=== PATIENT | female | born 1945 | race Caucasian/White ===

== ENCOUNTER → 2017-02-28 | Outpatient (CLI) | payer OTHER, MEDICARE | LOC: BMCIMAGING 13:53 | PROVIDERS: ATTEND Internal Medicine | DX: Z12.31 Encounter for screening mammogram for malignant neoplasm of breast (principal); Z13.820 Encounter for screening for osteoporosis; M85.80 Other specified disorders of bone density and structure, unspecified site | CPT/HCPCS: G0202 ==

== ENCOUNTER → 2017-03-22 | Outpatient (CLI) | payer OTHER, MEDICARE | LOC: BMCIMAGING 10:21 | PROVIDERS: ATTEND Internal Medicine | DX: N63 Unspecified lump in breast (principal) | CPT/HCPCS: 76641; G0206 ==

== ENCOUNTER → 2017-05-15 | Outpatient (CLI) | payer OTHER, MEDICARE | LOC: BMCIMAGING 07:25 | PROVIDERS: ATTEND Internal Medicine | DX: N20.0 Calculus of kidney (principal); N21.0 Calculus in bladder; N28.1 Cyst of kidney, acquired ==

== ENCOUNTER → 2017-05-22 | Outpatient (CLI) | payer OTHER | LOC: FIMAGING 14:15 | PROVIDERS: ATTEND Internal Medicine | DX: N63 Unspecified lump in breast (principal) | CPT/HCPCS: G0206 ==

== ENCOUNTER 2018-02-20 09:34 | Emergency (ER) | payer OTHER, MEDICARE ==
[2018-02-20] MEDS ORDERED: OXYMETAZOLINE 30 ML NASAL SPRAY ONE (09:48)
[2018-02-20] MEDS ORDERED: TRANEXAMIC ACID 1,000 MG/10 ML VIAL ONE (09:48)
[2018-02-20] MEDS ORDERED: SILVER NITRATE APPLICATOR 1 APPL TP ONE ×2 (10:16→10:28)
--- NOTE | 2018-02-20 10:43 | EDPHY ---
H & P Time Seen by Provider: 02/20/18 09:45 HPI/ROS: CHIEF COMPLAINT: Epistaxis HISTORY OF PRESENT ILLNESS: 72-year-old female who is on Coumadin presents to the emergency department by private vehicle with epistaxis. The patient states that she was a woken at 6 o'clock this morning with episode of epistaxis. She had difficulty controlling this. She did check her INR this morning and was 2.6. She denies feeling lightheaded or dizzy. Denies chest pain or difficulty breathing. Denies trauma. Denies abdominal pain or vomiting. REVIEW OF SYSTEMS: Constitutional: No fever, no chills. Eyes: No double or blurry vision. ENT: Epistaxis. No sore throat. Respiratory: No cough, no shortness of breath. Cardiac: No chest pain. Gastrointestinal: No abdominal pain, vomiting or diarrhea. Genitourinary: No dysuria. Musculoskeletal: No neck or back pain. Skin: No rashes. Neurological: No headache. Past Medical/Surgical History: Mitral valve replacement, hysterectomy, shoulder surgery, tubal ligation, tonsillectomy, cardioversion, atrial flutter, asthma, CVA Social History: Smoking Status: Never smoked Physical Exam: General Appearance: Alert, no distress. Initial blood pressure 124/94 Eyes: Pupils equal and round. Extraocular motions are all intact. ENT: Active bleeding noted from the right nostril as well as blood noted in the posterior pharynx. No bleeding from the left nostril. Respiratory: No wheezing, rhonchi, or rales, lungs are clear to auscultation. Cardiovascular: Regular rate and rhythm. Gastrointestinal: Abdomen is soft and nontender, no masses, no rebound or guarding, bowel sounds normal. Neurological: Alert and oriented x 3, cranial nerves II through XII grossly intact Skin: Warm and dry, no rashes. Musculoskeletal: Nontender to palpate along the cervical, thoracic or lumbar spine. Neck is supple. Extremities: Full range of motion and no peripheral edema. Psychiatric: Patient is oriented X 3, there is no agitation. Constitutional: Initial Vital Signs Temperature (C) 36.8 C 02/20/18 09:41 Heart Rate 86 02/20/18 09:41 Respiratory Rate 19 02/20/18 09:41 Blood Pressure 124/94 H 02/20/18 09:41 O2 Sat (%) 93 02/20/18 09:41 O2 Delivery Mode Room Air Allergies/Adverse Reactions: ketorolac tromethamine [From Toradol] Allergy (Verified 02/20/18 09:41) Vomiting Opioids - Morphine Analogues Allergy (Verified 02/20/18 09:41) Home Medications: Medication Instructions Recorded Metoprolol Tartrate [Lopressor 25 12.5 mg PO BID #30 tab 04/10/16 mg (*)] Sennosides [Senokot] 1 tab PO BID #0 tab 04/10/16 Warfarin Sodium [Coumadin 3MG (*)] 3 mg PO MoWeFr@1600 #0 tab 04/10/16 Warfarin Sodium [Coumadin 4MG (*)] 4 mg PO SuTuThSa@1600 #0 tab 04/10/16 Medical Decision Making Procedures: Procedure: Epistaxis control. After verbal consent was obtained, the patient was anesthetized with 1% lidocaine with epinephrine and TXA. The anterior epistaxis was identified. The patient was treated with silver nitrate. Following the procedure the patient was re-examined and the bleeding was well controlled. The patient tolerated the procedure well. The procedure was performed by myself. ED Course/Re-evaluation: 72-year-old female presents to the emergency department with acute epistaxis. This was controlled with silver nitrate. No packing needed. While the patient was in the emergency department she became extremely nauseous and vomited. She had blood noted in the vomit likely from all the blood dripping down from the posterior pharynx. The patient felt much better. She was no longer feeling nauseous. Vital signs remained stable. Repeat blood pressure 154/97, heart rate 68, 92% on room air. The patient was observed for over 1 hr after she was cauterized. She had no recurring bleeding. I do not think packing is indicated. She feels comfortable being discharged home. She drinks some juice and is feeling fine. She was given ENT referral. The patient had an INR at home at 2.6. She declined blood work including INR in the emergency department. Differential Diagnosis: Including but not limited to epistaxis, hypertensive crisis, anemia, supratherapeutic on Coumadin Departure - Departure Disposition: Home, Routine, Self-Care Clinical Impression: Acute anterior epistaxis Condition: Good Instructions: Nosebleed (ED) Additional Instructions: Try not to pick, rub or blow your nose for at least 3 days. Return to the emergency department if you developed recurring problems with nosebleeds. Continue to monitor your INR. Follow up with ENT as discussed. It would be beneficial if you added a nasal lubricant, Vaseline, or Aquaphor in her nose every night at bedtime, however, please weight 1 week to do this. Referrals: Estelle Anaya MD [Medical Doctor] - As per Instructions ([facility])
[2018-02-20 11:03] VITALS: BP 130/82
== END 2018-02-20 11:21 | disposition home or self-care (01) ==
LOC: SUPCPDRO 09:34
PROC: 3E09XTZ Introduction of Destructive Agent into Nose, External Approach (ICD-10-PCS; principal; 2018-02-20)
DX: R04.0 Epistaxis (principal); J45.909 Unspecified asthma, uncomplicated; Z79.01 Long term (current) use of anticoagulants; Z86.73 Personal history of transient ischemic attack (TIA), and cerebral infarction without residual deficits

== ENCOUNTER → 2018-09-09 | Outpatient (CLI) | payer OTHER, MEDICARE | LOC: BHFA 10:45 | PROVIDERS: ATTEND Internal Medicine Cardiovascular Disease | DX: I48.91 Unspecified atrial fibrillation (principal); I05.9 Rheumatic mitral valve disease, unspecified ==

== ENCOUNTER → 2018-11-01 | Outpatient (CLI) | payer OTHER, MEDICARE | LOC: FIMAGING 13:30 | PROVIDERS: ATTEND Internal Medicine | DX: N63.10 Unspecified lump in the right breast, unspecified quadrant (principal) ==

== ENCOUNTER → 2019-03-05 | Outpatient (CLI) | payer OTHER, MEDICARE | LOC: BMCIMAGING 08:12 ==